=== PATIENT | male | born 1950 | race Caucasian/White ===

== ENCOUNTER 2019-07-05 08:29 | Inpatient (IN) | payer OTHER ==
[~2019-07-05] VITALS: Ht 190.5 cm; Wt 102.0 kg
[2019-07-05 08:30] VITALS: BP 100/72
--- NOTE | 2019-07-05 08:40 | NUR ---
DEFIBRILLATOR MONITOR PADS PLACED ONTO PATIENT AT THIS TIME. MONITOR IS ON. THIS NURSE TO GO BACK TO CT SCAN WITH PATIENT.
--- NOTE | 2019-07-05 08:55 | NUR ---
BACK FROM CT SCAN AT THIS TIME. THIS NURSE WENT WITH PATIENT.
[2019-07-05 08:59] LABS: BASO % 0.4 % (0.0-1.0); EOS # 0.2 10*3/uL (0.0-0.4); EOS % 1.5 % (1.0-4.0); HEMATOCRIT 45.8 % (42.0-52.0); HEMOGLOBIN 15.1 g/dl (14.0-18.0); LYMPH # 3.7 10*3/uL (1.3-4.4); LYMPH % 36.5 % (27.0-41.0); MEAN CELL VOLUME 91.8 fl (80.0-94.0); MEAN CORPUSCULAR HGB 30.3 pg (27.0-31.0); MEAN PLATELET VOLUME 10.9 fl (9.6-12.3); MONO # 0.7 10*3/uL (0.1-1.0); MONO % 6.7 % (3.0-9.0); NEUT # 5.5 10*3/uL (2.3-7.9); NEUT % 54.3 % (47.0-73.0); PLATELET COUNT AUTOMATED 179 10*3/uL (130-400); RED BLOOD COUNT 4.99 10*6/uL (4.50-5.90); RED CELL DISTRI WIDTH 13.3 % (0-14.5)
[2019-07-05 09:15] LABS: ALBUMIN 3.8 gm/dl (3.1-4.5); CREATININE 1.72 mg/dL (0.70-1.30); POTASSIUM 3.8 mmol/L (3.5-5.1); TOTAL PROTEIN 6.6 gm/dL (6.4-8.2); TROPONIN I 0.017 ng/ml (<0.045)
[2019-07-05 09:40] VITALS: BP 82/70
--- NOTE | 2019-07-05 09:40 | NUR ---
NITRO HELD DUE TO BP OF 82/70. DR HARVEY NOTIFIED.
[2019-07-05 09:51] VITALS: BP 104/70
--- NOTE | 2019-07-05 10:02 | NUR ---
ATTEMPTED TO TITRATE AND REMOVED O2 NRB MASK OFF PATIENT. PATIENT STATES THAT HE FELT SOB AND LIKE HE WAS GOING TO HAVE A SYNCOPAL EPISODE SO NON REBREATHER REPLACED ONTO PATIENT. PATIENT NOW TOLERATING WELL.
[2019-07-05 10:38] LABS: ACT PARTIAL THROMBO TIME 22.2 SECONDS (20.0-32.1)
[2019-07-05 10:51] VITALS: BP 112/77
--- NOTE | 2019-07-05 10:51 | NUR ---
5,000 UNTI BOLUS GIVEN PER VERBAL ORDER DR HARVEY PER HEPARIN PROTOCOL.
--- NOTE | 2019-07-05 11:05 | NUR ---
PATIENT TAKEN OFF OF NON REBREATHER AND PLACED ON VENTURI MASK AT 15L/MIN. PATIENT TOLERATING WELL.
[2019-07-05 11:15] VITALS: BP 108/72
[2019-07-05 11:16] VITALS: BP 115/82
--- NOTE | 2019-07-05 11:16 | NUR ---
A 68, admitted to , under the services of ASHER Stroud DO with a diagnosis of CHEST PAIN,HEAD INJURY,FALL. Chief complaint is SYNCOPAL EPISODE . Patient arrived via bed from ER. Monitor applied. Initial assessment completed. Vital signs taken and recorded. ASHER STROUD DO notified of admission to the unit. Orders received. See assessment for past medical history, medications and allergies. Patient and/or family oriented to unit. [facility] visitation policy reviewed. Clothing/patient valuable form completed. ODESSA BEATTY
--- NOTE | 2019-07-05 13:09 | NUR ---
PT TRANSFERRED VIA STAT [facility] TO [facility] AT THIS TIME. VSS. BILATERAL HEPLOCKLS INTACT. REPORT GIVEN TO RECIEVING UNIT.
== END 2019-07-05 13:19 | disposition short-term general hospital (02) | DRG 282 ==
LOC: ED 08:29 → EDHOLD 10:51 → 4E 11:20
PROVIDERS: Emergency Medicine; ADMIT Internal Medicine
DX: I21.4 Non-ST elevation (NSTEMI) myocardial infarction (principal); S09.90XA Unspecified injury of head, initial encounter; W19.XXXA Unspecified fall, initial encounter; Y93.89 Activity, other specified; Y92.89 Other specified places as the place of occurrence of the external cause; Y99.8 Other external cause status; Z88.5 Allergy status to narcotic agent; S09.93XA Unspecified injury of face, initial encounter